=== PATIENT | female | born 1985 | race Caucasian/White ===

== ENCOUNTER → 2017-04-12 | Emergency (ER) | payer OTHER ==
[~2017-04-12] VITALS: Ht 162.6 cm; Wt 60.8 kg
== END | disposition home or self-care (01) ==
LOC: ER 09:14
DX: R10.2 Pelvic and perineal pain (principal)

== ENCOUNTER 2017-04-14 09:15 | Inpatient (IN) | payer OTHER ==
[~2017-04-14] VITALS: Ht 121.9 cm; Wt 5.0 kg
== END 2017-04-17 10:23 | disposition home or self-care (01) | DRG 777 ==
LOC: OB/GYN 09:15 → O/R 11:00 → OB/GYN 11:00
PROVIDERS: Obstetrics & Gynecology
PROC: 0DNW0ZZ Release Peritoneum, Open Approach (ICD-10-PCS; 2017-04-14)
PROC: 0UN60ZZ Release Left Fallopian Tube, Open Approach (ICD-10-PCS; 2017-04-14)
PROC: 10D27ZZ Extraction of Products of Conception, Ectopic, Via Natural or Artificial Opening (ICD-10-PCS; principal; 2017-04-14 10:00)
DX: O00.102 Left tubal pregnancy without intrauterine pregnancy (principal); K66.1 Hemoperitoneum

== ENCOUNTER 2022-11-12 05:39 | Emergency (ER) | payer OTHER ==
[~2022-11-12] VITALS: Ht 162.6 cm; Wt 56.7 kg
[2022-11-12] MEDS ORDERED: NORFLEX100MG PO (09:07)
== END 2022-11-12 09:28 | disposition home or self-care (01) ==
LOC: ER 05:39
DX: M54.50 Low back pain, unspecified (principal); Z88.6 Allergy status to analgesic agent; Z88.8 Allergy status to other drugs, medicaments and biological substances

== ENCOUNTER 2023-10-17 11:33 | Emergency (ER) | payer OTHER ==
[~2023-10-17] VITALS: Ht 162.6 cm; Wt 59.0 kg
[~2023-10-17 11:33] MED LIST: NORFLEX100MG PO
[2023-10-17] MEDS ORDERED: DEXAMETHASONE SODIUM PHOSPHATE 4 MG/ML VIAL IM STA (12:36)
[2023-10-17] MEDS ORDERED: ORPHENADRINE CITRATE 30 MG/ML AMPUL IM STA (12:36)
[2023-10-17] MEDS ORDERED: DEXAMETHASONE SODIUM PHOSPHATE 4 MG/ML VIAL ONE (12:52)
[2023-10-17] MEDS ORDERED: ORPHENADRINE CITRATE 30 MG/ML AMPUL ONE (12:52)
== END 2023-10-17 13:38 | disposition home or self-care (01) ==
LOC: ER 11:35
DX: M62.830 Muscle spasm of back (principal); Z88.6 Allergy status to analgesic agent; Z88.8 Allergy status to other drugs, medicaments and biological substances

== ENCOUNTER 2024-06-13 06:30 | Emergency (ER) | payer OTHER ==
[~2024-06-13] VITALS: Ht 162.6 cm; Wt 59.0 kg
[2024-06-13] MEDS ORDERED: ORPHENADRINE CITRATE 30 MG/ML AMPUL IM STA (07:34)
[2024-06-13] MEDS ORDERED: TRIAMCINOLONE ACETONIDE 40 MG/ML VIAL IM STA (07:34)
[2024-06-13] MEDS ORDERED: TRIAMCINOLONE ACETONIDE 40 MG/ML VIAL ONE (07:37)
[2024-06-13] MEDS ORDERED: ORPHENADRINE CITRATE 30 MG/ML AMPUL ONE (07:37)
[2024-06-13] MEDS ORDERED: NORFLEX100MG PO (07:44)
== END 2024-06-13 08:20 ==
LOC: ER 06:31
DX: M54.9 Dorsalgia, unspecified (principal); M62.830 Muscle spasm of back; M54.50 Low back pain, unspecified; Z88.6 Allergy status to analgesic agent